=== PATIENT | male | born 1945 | race Caucasian/White ===

== ENCOUNTER 2019-07-03 18:37 | Emergency (ER) | payer OTHER ==
[~2019-07-03] VITALS: Ht 160 cm; Wt 95.3 kg
[2019-07-03 18:50] VITALS: BP_SYST 172
--- NOTE | 2019-07-03 18:50 | NUR ---
Placed in room 2 . Placed on nuclear monitoring technician, blood pressure machine and pulse oximeter. To gown for exam. Side rails up.
[2019-07-03] MEDS ORDERED: NACL 0.9% 1,000 ML IV ONE (18:52)
[2019-07-03] MEDS ORDERED: KETOROLAC TROMETHAMINE 30 MG VIAL IVP ONE (19:00)
--- NOTE | 2019-07-03 19:03 | NUR ---
Pt states right chest pain /.
--- NOTE | 2019-07-03 19:03 | NUR ---
Pt presents to ER with self with c/o right sided chest pain. Pt A&Ox4. Pt states right sided chest pain that radiates to right shoulder blade. Pt explains pain as a stabbing sensation. Pt states pain comes and goes. Pt denies cough, fever, SOB, fever, chills, nausea and vomiting. Pt states he is under a lot of stress lately due to his passing 4 months ago. Pt breath sounds bilaterally clear with no use of accessory muscles. Will continue to monitor.
[2019-07-03 19:42] LABS: BASOPHILS # (AUTO) 0.1 K/uL (0.0-0.2); BASOPHILS % (AUTO) 0.9 % (0.0-2.0); EOSINOPHILS # (AUTO) 0.3 K/uL (0.0-0.4); EOSINOPHILS % (AUTO) 4.1 % (0.0-4.0); HEMATOCRIT 39.3 % (36-54); HEMOGLOBIN 13.3 g/dL (14.0-18.0); LYMPHOCYTES # (AUTO) 1.6 K/uL (1.0-5.5); LYMPHOCYTES % (AUTO) 21.2 % (20.5-51.5); MEAN CORPUSCULAR HEMOGLOBIN 30 pg (27-31); MEAN CORPUSCULAR HGB CONC 34 % (32-36); MEAN CORPUSCULAR VOLUME 89 fL (79.0-98.0); MONOCYTES # (AUTO) 0.8 K/uL (0.0-1.0); MONOCYTES % (AUTO) 10.3 % (1.7-9.3); NEUTROPHILS # (AUTO) 4.7 K/uL (1.8-7.7); NEUTROPHILS % (AUTO) 63.5 % (40.0-70.0); PLATELET COUNT (AUTO) 150 K/uL (130-430); RED BLOOD CELL COUNT(AUTO) 4.45 MIL/uL (4.2-6.2); RED CELL DISTRIBUTION WIDTH 13.9 % (9.0-15.0); WHITE BLOOD COUNT (AUTO) 7.5 K/uL (4.8-10.8)
--- NOTE | 2019-07-03 19:48 | NUR ---
Pt denies IV access and IV medications. MD Mckeon made aware. Will continue to monitor.
[2019-07-03 19:49] LABS: PROTHROMBIN TIME 9.7 SECS (9.5-12.5)
[2019-07-03 19:59] LABS: ANION GAP 6 (5-15); CALCIUM 8.6 mg/dL (8.4-11.0); CHLORIDE 102 mmol/L (98-107); CREATININE 1.28 mg/dL (0.55-1.30); GLUCOSE 124 mg/dL (70-99); SODIUM SERUM 135 mmol/L (136-145); UREA NITROGEN, BLOOD 17 mg/dL (8-21)
--- NOTE | 2019-07-03 20:01 | NUR ---
MD Mckeon speaking to patient.
[2019-07-03 20:04] LABS: ALANINE AMINOTRANSFERASE 38 U/L (12-78); ALBUMIN 3.5 g/dL (3.4-4.8); AMYLASE 47 U/L (0-100); ASPARTATE AMINOTRANSFERASE 17 U/L (10-37); LIPASE 109 U/L (73-393); TOTAL BILIRUBIN 0.4 mg/dL (0.0-1.0)
--- NOTE | 2019-07-03 20:32 | NUR ---
Pt daughter at bedside speaking with pt about care.
--- NOTE | 2019-07-03 20:44 | NUR ---
MD Mckeon at bedside speaking with pt and pt daughter regarding care.
--- NOTE | 2019-07-03 21:20 | NUR ---
Patient does not wish to proceed with medical care recommended by Linda. Patient given information related to possible complications, up to and including , which could occur as a result of leaving hospital at this time. Patient verbalizes understanding of risks involved leaving against medical advice. Patient has signed AMA form.
== END 2019-07-03 21:20 | disposition left against medical advice (07) ==
LOC: SED 18:37
DX: R07.89 Other chest pain (principal); I10 Essential (primary) hypertension; Z88.0 Allergy status to penicillin; Z88.8 Allergy status to other drugs, medicaments and biological substances
CPT/HCPCS: 36415; 71045; 80053; 82150-TC; 82550-TC; 83605; 83690-TC; 83880; 84484; 85025; 85610-TC; 85730-TC; 87040-TC; 93005; 99285